=== PATIENT | male | born 1955 | race Caucasian/White ===

== ENCOUNTER 2016-11-19 11:29 | Inpatient (IN) | payer MEDICAID ==
[~2016-11-19] VITALS: Ht 177.8 cm; Wt 106.0 kg
[2016-11-19] MEDS ORDERED: METO25TA35 PO (13:41)
[2016-11-19] MEDS ORDERED: ATOR40TA78 PO (13:42)
[2016-11-19] MEDS ORDERED: GLIP10TA13 PO (13:45)
[2016-11-19] MEDS ORDERED: OMEP-110 PO (13:45)
[2016-11-19] MEDS ORDERED: GABA100C8 PO (13:45)
[2016-11-19] MEDS ORDERED: AMLO10TA2 PO (13:45)
[2016-11-19] MEDS ORDERED: METF10002 PO (13:45)
[2016-11-19] MEDS ORDERED: ASPI-515 PO (13:45)
[2016-11-19 14:12] VITALS: BP 121/75
[2016-11-19 14:18] VITALS: BP 124/72
[2016-11-19] MEDS ORDERED: SODIUM CHLORIDE 0.9% 1,000 ML IV SCH (14:27)
[2016-11-19] MEDS ORDERED: DOCUSATE 100 MG CAPSULE PO PRN (14:30)
[2016-11-19] MEDS ORDERED: ONDANSETRON 2MG/ML, 2ML IVP PRN (14:30)
[2016-11-19] MEDS ORDERED: ONDANSETRON ODT 4 MG PO PRN (14:30)
[2016-11-19] MEDS ORDERED: ACETAMINOPHEN 325 MG TABLET PO PRN (14:30)
[2016-11-19] MEDS: INSULIN ASPART 100 UNITS/ML, PEN SQ-INSULIN SCH ×2 (16:00→21:00)
[2016-11-19] MEDS: SODIUM CHLORIDE 0.9% 1,000 ML IV SCH (18:03)
[2016-11-19 19:45] VITALS: BP 136/75
[2016-11-19] MEDS: ATORVASTATIN 40 MG TABLET PO SCH (21:22)
[2016-11-19] MEDS: METOPROLOL TARTRATE 25 MG TABLET PO SCH (21:23)
[2016-11-20 02:00] VITALS: BP 145/63
[2016-11-20 04:48] LABS: BLOOD UREA NITROGEN 24 mg/dL (7-18)
[2016-11-20] MEDS: SODIUM CHLORIDE 0.9% 1,000 ML IV SCH ×3 (05:44→23:58)
[2016-11-20 07:07] VITALS: BP 136/63
[2016-11-20] MEDS: INSULIN ASPART 100 UNITS/ML, PEN SQ-INSULIN SCH ×4 (08:53→22:00)
[2016-11-20] MEDS: METOPROLOL TARTRATE 25 MG TABLET PO SCH ×2 (08:55→21:27)
[2016-11-20] MEDS: OMEPRAZOLE 20 MG CAPSULE.DR PO SCH (08:55)
[2016-11-20] MEDS ORDERED: GABAPENTIN 100 MG CAPSULE PO SCH (09:00)
[2016-11-20 12:58] VITALS: BP 157/87
[2016-11-20] MEDS ORDERED: MIDAZOLAM 1 MG/ML, 5ML ONE (14:30)
[2016-11-20] MEDS ORDERED: DIPHENHYDRAMINE 50 MG/ML, 1ML ONE (14:31)
[2016-11-20] MEDS ORDERED: D5W PMX ONE (14:31)
[2016-11-20] MEDS ORDERED: HEPARIN 1,000 UNITS/ML, 10ML ONE ×3 (14:31→16:51)
[2016-11-20] MEDS ORDERED: BIVALIRUDIN 250 MG ONE (14:31)
[2016-11-20] MEDS ORDERED: DOPAMINE ONE (14:31)
[2016-11-20] MEDS ORDERED: FENTANYL PF 100 MCG/2ML ONE (14:31)
[2016-11-20] MEDS ORDERED: EPTIFIBATIDE 20 MG/10 ML ONE (14:32)
[2016-11-20] MEDS ORDERED: EPTIFIBATIDE 0 ML IV ONE (14:32)
[2016-11-20] MEDS ORDERED: NITROGLYCERIN 5 MG/ML, 10ML ONE (14:40)
[2016-11-20] MEDS ORDERED: VERAPAMIL 2.5 MG/ML, 2ML ONE ×2 (14:41→15:47)
[2016-11-20] MEDS ORDERED: LIDOCAINE 2%, 20ML ONE (14:41)
[2016-11-20] MEDS ORDERED: CLOPIDOGREL 300 MG TABLET ONE (16:59)
[2016-11-20 20:23] VITALS: BP 149/81
[2016-11-20] MEDS: ATORVASTATIN 40 MG TABLET PO SCH (21:27)
[2016-11-20] MEDS: MORPHINE SULFATE 4 MG/ML, 1ML IVPush PRN (23:58)
[2016-11-21] MEDS: MORPHINE SULFATE 4 MG/ML, 1ML IVPush PRN ×2 (00:22→05:05)
[2016-11-21 02:50] VITALS: BP 136/80
[2016-11-21] MEDS ORDERED: ASPIRIN 81 MG TABLET EC PO SCH (06:00)
[2016-11-21] MEDS ORDERED: CLOP75TA PO (08:27)
[2016-11-21 08:30] VITALS: BP 114/61
[2016-11-21] MEDS: OMEPRAZOLE 20 MG CAPSULE.DR PO SCH (08:49)
[2016-11-21] MEDS: METOPROLOL TARTRATE 25 MG TABLET PO SCH (08:49)
[2016-11-21] MEDS: INSULIN ASPART 100 UNITS/ML, PEN SQ-INSULIN SCH (08:50)
[2016-11-21] MEDS: SODIUM CHLORIDE 0.9% 1,000 ML IV SCH (08:50)
[2016-11-21 08:56] LABS: BLOOD UREA NITROGEN 21 mg/dL (7-18)
[2016-11-21] MEDS ORDERED: GABAPENTIN 400 MG CAPSULE PO SCH (09:00)
[2016-11-21] MEDS ORDERED: CLOPIDOGREL 75 MG TABLET PO SCH (09:00)
== END 2016-11-21 10:57 | disposition home or self-care (01) | DRG 247 ==
LOC: 5SO 13:27
PROVIDERS: ADMIT Hospitalist; ATTEND Hospitalist
PROC: 027034Z Dilation of Coronary Artery, One Artery with Drug-eluting Intraluminal Device, Percutaneous Approach (ICD-10-PCS; principal; 2016-11-20)
PROC: 02C03ZZ Extirpation of Matter from Coronary Artery, One Artery, Percutaneous Approach (ICD-10-PCS; 2016-11-20)
PROC: 4A033BC Measurement of Arterial Pressure, Coronary, Percutaneous Approach (ICD-10-PCS; 2016-11-20)
PROC: B2111ZZ Fluoroscopy of Multiple Coronary Arteries using Low Osmolar Contrast (ICD-10-PCS; 2016-11-20)
PROC: B2131ZZ Fluoroscopy of Multiple Coronary Artery Bypass Grafts using Low Osmolar Contrast (ICD-10-PCS; 2016-11-20)
DX: I25.10 Atherosclerotic heart disease of native coronary artery without angina pectoris (principal); I12.9 Hypertensive chronic kidney disease with stage 1 through stage 4 chronic kidney disease, or unspecified chronic kidney disease; N18.9 Chronic kidney disease, unspecified; F32.9 Major depressive disorder, single episode, unspecified; E11.22 Type 2 diabetes mellitus with diabetic chronic kidney disease; E78.5 Hyperlipidemia, unspecified; E11.40 Type 2 diabetes mellitus with diabetic neuropathy, unspecified; K21.9 Gastro-esophageal reflux disease without esophagitis; Z95.1 Presence of aortocoronary bypass graft; Z88.8 Allergy status to other drugs, medicaments and biological substances; Z91.030 Bee allergy status; Z87.891 Personal history of nicotine dependence; Z87.442 Personal history of urinary calculi; Z83.3 Family history of diabetes mellitus; Z82.49 Family history of ischemic heart disease and other diseases of the circulatory system; Z72.89 Other problems related to lifestyle
CPT/HCPCS: 33210; 36415; 80048; 82040; 82962; 85025; 85347; 93005; 93571; C1769; C1894; J0583; J1265; J1644; J2250; J3010; J3490; C1724; C1725; C1874; C1887; J1200; J1327; J7030; Q9967